=== PATIENT | male | born 1980 | race American Indian/Alaskan Native ===

== ENCOUNTER 2016-11-04 01:08 | Emergency (ER) | payer MEDICAID, SELFPAY ==
[2016-11-04] MEDS ORDERED: Sodium Chloride 0.9% 1,000 ML IV ONE (01:33)
[2016-11-04] MEDS ORDERED: Sodium Chloride 0.9% 10 ML Syringe FLUSH PRN (01:34)
[2016-11-04] MEDS ORDERED: Ondansetron 4 MG/2 ML SDV IVPUSH ONE (01:34)
[2016-11-04] MEDS ORDERED: Sodium Chloride 0.9% 2.5 ML Syringe FLUSH PRN (01:34)
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
[2016-11-04 02:23] LABS: CHLORIDE,CL 108 mmol/L (98-110); SODIUM,NA 139 mmol/L (136-146)
[2016-11-04] MEDS ORDERED: Iopamidol 755 Mg/ML 100 ML Bottle IVPUSH STA (03:15)
[2016-11-04 04:23] VITALS: BP 137/88
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
--- NOTE | 2016-11-04 12:35 | CT ---
EXAM DATE: 11/04/16 PATIENT'S AGE: 36 Patient: PUMA REYNOLDS Facility: [place], [place] Site . Site : 1980 Study: CT Abdomen/Pelvis [id number]/17/2017 3:13:43 AM Ordering Physician: Thad Morillo Final Report: INDICATION: chest tightness, abd pain, pt fell with bruising of L side of abdomen TECHNIQUE: CT abdomen and pelvis acquired with i.v. contrast. Coronal and sagittal reformats were obtained. COMPARISON: None FINDINGS: Lower chest: Unremarkable. Liver: Unremarkable. Spleen: Unremarkable. Pancreas: Mild retroperitoneal edema seen surrounding the tail of the pancreas. Gallbladder and bile ducts: Unremarkable. Kidneys: Unremarkable. No kidney or ureteral stones and no hydronephrosis seen. Adrenal glands: Unremarkable. GI tract: Mild dilatation of the proximal small bowel seen in the left upper quadrant which may be due to sentinel loops. The appendix is normal in appearance and size. Moderate sigmoid diverticulosis is present with no evidence of diverticulitis area Vascular: Unremarkable. Lymph nodes: Unremarkable. Miscellaneous: Unremarkable. No pneumoperitoneum is seen. No significant ascites is noted. Pelvic Organs: Unremarkable. Bones: Bilateral chronic pars defects of L5 noted with no significant anterolisthesis of L5-S1 noted. IMPRESSION: 1. Mild retroperitoneal edema seen surrounding the tail of the pancreas. Correlation with serum amylase and lipase levels are recommended to exclude acute pancreatitis. Dictated by Rickie Contreras MD @ 11/04/2016 3:20:25 AM Dictated by: Rickie Contreras MD @ 11/04/2016 03:20:29 (Electronic Signature) Report Signed by Proxy and Original Signed Document filed in the Medical Record. [facility]
--- NOTE | 2016-11-04 12:37 | CR ---
EXAM DATE: 11/04/16 PATIENT'S AGE: 36 Patient: PUMA REYNOLDS Facility: [place], [place] Site . Site : 1980 Study: XRay Chest [id number]/17/2017 3:18:26 AM Ordering Physician: Thad Morillo Final Report: INDICATION: chest tightness TECHNIQUE: Chest radiograph 2 views COMPARISON: None FINDINGS: Cardiovascular and mediastinum: The cardiac silhouette is normal in appearance and size. Mediastinum is within normal limits. Lungs and pleural spaces: Mild perihilar atelectasis is noted with small lung volumes. No sign of pleural effusion. No pneumothorax is seen. Bones and soft tissues: No significant findings. IMPRESSION: 1. Mild perihilar atelectasis is noted with small lung volumes. Dictated by: Rickie Contreras MD @ 11/04/2016 03:21:58 (Electronic Signature) Report Signed by Proxy and Original Signed Document filed in the Medical Record. [facility]
== END 2016-11-04 03:20 | disposition home or self-care (01) ==
LOC: MW.ED 01:08 → EDSEX 01:08 → MW.ED 03:20
DX: F10.99 Alcohol use, unspecified with unspecified alcohol-induced disorder (principal); R09.89 Other specified symptoms and signs involving the circulatory and respiratory systems; R10.30 Lower abdominal pain, unspecified; R11.2 Nausea with vomiting, unspecified; F17.210 Nicotine dependence, cigarettes, uncomplicated
CPT/HCPCS: 70450; 71020; 74177; 80053; 80305; 81001; 82150; 83690; 83735; 84484; 85025; 93005; 96361; 96374; 99284; G0480; J2405; J7040; Q9967